=== PATIENT | female | born 1935 | race Caucasian/White ===

== ENCOUNTER → 2022-02-10 | Outpatient (CLI) | payer MEDICARE, OTHER ==
[~2022-02-10] MED LIST: LEVO-T25 MCG PO; PRAV20 PO; Triamterene W/1 EACH
[2022-02-10 14:35] LABS: Microalb/Creat Ratio UR, Rand 349.697 mg/g (0.000-30.000)
== END | disposition home or self-care (01) ==
LOC: LAB 10:14 → LAB SHORT 10:14
PROVIDERS: Physician Assistant
DX: N18.30 Chronic kidney disease, stage 3 unspecified (principal)
CPT/HCPCS: 82043; 82570